=== PATIENT | female | born 1980 | race Caucasian/White ===

== ENCOUNTER 2018-11-26 21:22 | Emergency (ER) | payer OTHER ==
[~2018-11-26] VITALS: Ht 157.5 cm; Wt 56.7 kg
[2018-11-26] MEDS ORDERED: CLOM50TA PO (22:03)
--- NOTE | 2018-11-26 22:12 | NUR ---
Dr. Ortiz at bedside
--- NOTE | 2018-11-26 22:46 | NUR ---
, Danna contact for results
--- NOTE | 2018-11-26 22:56 | NUR ---
Patient discharged to home in stable conditon. Written and verbal after care instructions given. Patient verbalizes understanding of instructions. patient received crutches and gait training prior to discharge,. Exit care package and personal belongings was taken with patient. Patient denies any pain/discomfort prior to discharge. patient with side assist from Danna. Danna contact number [phone] for x-ray results. Neurovascular checks prior to discharge, no abnormalities noted. patient assisted to car with Cholo DOAN and via wheel chair.
[2018-11-26 23:01] VITALS: BP 109/59
== END 2018-11-26 22:58 | disposition home or self-care (01) ==
LOC: ER 21:27
DX: M25.461 Effusion, right knee (principal); Z79.899 Other long term (current) drug therapy
CPT/HCPCS: A4663